=== PATIENT | female | born 1995 | race Caucasian/White ===

== ENCOUNTER 2017-11-05 22:38 | Emergency (ER) | payer BC ==
[2017-11-05 22:51] VITALS: BP 99/57
[2017-11-05] MEDS ORDERED: IPRATROPIUM/ALBUTEROL 3 ML NEB INH STA (22:58)
[2017-11-05] MEDS ORDERED: predniSONE 20 MG TABLET PO STA (22:58)
--- NOTE | 2017-11-05 23:00 | ED Physician Documentation ---
PD HPI DYSPNEA - Stated complaint Stated Complaint: SOA/CHEST PX - Chief complaint Chief Complaint: Resp - History obtained from History obtained from: Patient, Family - History of Present Illness Timing - onset: Yesterday Timing - onset during: Rest Timing - details: Gradual onset, Still present Improved by: Inhaler/neb Worsened by: Exertion Associated symptoms: Wheezing. No: Chest pain / discomfort, Bilateral edema, Unilateral edema Similar symptoms before: Work up / diagnostics, Treatment Recently seen: Not recently seen - Additional information Additional information: Patient is a 21 year old female with a history of asthma who is presenting to the emergency department for wheezing and shortness of breath. patient states that the symptoms have been going on for the last few days. patient states that she took her inhaler but her symptoms came back. Patient denies any fevers or sick contacts. Review of Systems Constitutional: denies: Fever, Chills Eyes: reports: Reviewed and negative Ears: reports: Reviewed and negative Nose: reports: Reviewed and negative Throat: reports: Reviewed and negative Cardiac: denies: Chest pain / pressure, Palpitations Respiratory: reports: Cough, Wheezing GI: reports: Reviewed and negative : reports: Reviewed and negative Skin: reports: Reviewed and negative Musculoskeletal: denies: Extremity swelling Neurologic: reports: Reviewed and negative Immunocompromised: denies: Immunocompromised PD PAST MEDICAL HISTORY - Present Medications Home Medications: Ambulatory Orders Medication Instructions Recorded Confirmed Albuterol Sulf [Ventolin Hfa 2 puffs IH Q6HR PRN 11/05/17 11/05/17 Inhaler] Bcp 11/05/17 Cetirizine [ZyrTEC] 1 tab PO DAILY 11/05/17 11/05/17 Fluoxetine HCl [Prozac] 1 cap PO DAILY 11/05/17 11/05/17 predniSONE [Prednisone] 40 mg PO DAILY 5 Days tablet 11/05/17 - Allergies Allergies/Adverse Reactions: Allergies Allergy/AdvReac Type Severity Reaction Status Date / Time No Known Drug Allergies Allergy Verified 11/05/17 22:51 PD ED PE NORMAL - Vitals Vital signs reviewed: Yes - General General: Alert and oriented X 3, No acute distress - HEENT HEENT: Atraumatic, PERRL - Neck Neck: Supple, no meningeal sign - Cardiac Cardiac: RRR - Abdomen Abdomen: Soft - Derm Derm: Normal color, Warm and dry, No rash - Extremities Extremities: No deformity - Neuro Neuro: Alert and oriented X 3, No motor deficit, Normal speech Eye Opening: Spontaneous PD ED PE EXPANDED - Respiratory Respiratory: Wheezing, Right upper lobe, Left upper lobe. No: Accessory mm use , Retractions Results - Vitals Vitals: Vital Signs - 24 hr 11/05/17 22:49 Temperature 36.0 C L Heart Rate 70 Respiratory 20 Rate Blood Pressure 99/57 L O2 Saturation 98 Oxygen O2 Source Room air PD MEDICAL DECISION MAKING - ED course Complexity details: reviewed old records, reviewed results, re-evaluated patient , considered differential, d/w patient ED course: Patient was seen and examined at bedside. patient had bilateral wheezing but was in no acute distress. Patient was treated with prednisone and two duoneb treatments. patient responded to the therapy and stated that she felt much better. Patient stated that she did not need any more treatments and wanted to return home. patient required no further work up at this time and was stable for discharge with outpatient followup. Departure - Departure Disposition: 01 Home, Self Care Clinical Impression: Asthma Condition: Good Instructions: Asthma Dc Follow-Up: primary,care provider [Other] - As Needed Prescriptions: predniSONE [Prednisone] 40 mg PO DAILY 5 Days tablet Comments: Your symptoms today are being caused by an asthma attack. You have been started on a short course of steroids. during the acute phase you can use your inhaler with a spacer every 2 hours as needed. If you symptoms don't improve over the next few days you should follow up with your doctor. You may return to the emergency department at any time for new, worsening or uncontrollable symptoms.
== END 2017-11-05 23:47 | disposition home or self-care (01) ==
LOC: ED 22:38
DX: J45.901 Unspecified asthma with (acute) exacerbation (principal)
CPT/HCPCS: 94640; 94664; 99283; J7512